=== PATIENT | female | born 2000 | race African-American/Black ===

== ENCOUNTER 2022-04-10 15:58 | Emergency (ER) | payer OTHER ==
[~2022-04-10] VITALS: Ht 167.6 cm; Wt 70.0 kg
[2022-04-10 17:42] LABS: BASOPHILS % 0.3 % (0.0-2.0); EOSINOPHILS % 0.2 % (0.0-5.0); HEMATOCRIT. 41.2 % (36.0-48.0); HEMOGLOBIN. 13.6 g/dL (12.0-16.0); LYMPHOCYTES % 12.1 % (20.0-50.0); MEAN CORPUSCULAR HEMOGLOBIN 29.8 pg (28.0-32.0); MEAN CORPUSCULAR VOLUME 90.1 fL (81.0-99.0); MEAN PLATELET VOLUME 8.6 fl (7.4-10.4); MONOCYTES % 8.8 % (2.0-8.0); NEUTROPHILS % 78.6 % (40.0-76.0); PLATELET 289 x1000/uL (130-400); RED BLOOD CELL COUNT 4.57 mill/uL (4.2-5.4)
[2022-04-10 17:47] LABS: CHLORIDE 102 mEq/L (98-107)
[2022-04-10 17:53] LABS: ETHANOL BLOOD < 10 mg/dL
[2022-04-10] MEDS ORDERED: NAPR-681 PO (17:56)
[2022-04-10] MEDS ORDERED: CYCL5TAB PO (17:56)
[2022-04-10] MEDS ORDERED: IBUPROFEN 600MG TABLET PO NR (18:00)
[2022-04-10 18:17] VITALS: BP 97/79
== END 2022-04-10 18:21 | disposition home or self-care (01) ==
LOC: ER 15:58
DX: S00.83XA Contusion of other part of head, initial encounter (principal); R68.84 Jaw pain; V49.49XA Driver injured in collision with other motor vehicles in traffic accident, initial encounter; Y93.89 Activity, other specified; Y92.89 Other specified places as the place of occurrence of the external cause; Y99.8 Other external cause status
CPT/HCPCS: 36415; 70486; 80048; 80320; 81025; 85025; 99284; G0480